=== PATIENT | female | born 1970 | race Caucasian/White ===

== ENCOUNTER 2018-08-03 14:36 | Emergency (ER) | payer MEDICAID ==
--- NOTE | 2018-08-03 15:46 | ER Document Report ---
ED Medical Screen (RME) - General TRAVEL OUTSIDE OF THE [place] IN LAST 30 DAYS: No <CHRISTINA FREITAS - Last Filed: 08/03/18 15:45> <BARB BUSH - Last Filed: 08/03/18 20:23> - General Chief Complaint: Diarrhea Stated Complaint: DIARRHEA Time Seen by Provider: 08/03/18 15:41 Notes: 47 years old female presents today with abdominal pain, and left lower quadrant region for the last 4-5 days with brown to black stools. No fever chills but nauseous. She has multiple medical problems. On examination left lower quadrant tenderness noted. (CHRISTINA FREITAS) - Related Data Allergies/Adverse Reactions: codeine Allergy (Verified 08/03/18 14:43) - Vital signs Vitals: Temp Pulse Resp BP Pulse Ox 97.8 F 75 16 94/58 L 100 08/03/18 15:12 08/03/18 15:12 08/03/18 15:12 08/03/18 15:12 08/03/18 15:12 Course - Laboratory Result Diagrams: 08/03/18 16:28 08/03/18 16:28 <BARB BUSH - Last Filed: 08/03/18 20:23> - Vital Signs Vital signs: Temp Pulse Resp BP Pulse Ox 97.8 F 75 16 94/58 L 100 08/03/18 15:12 08/03/18 15:12 08/03/18 15:12 08/03/18 15:12 08/03/18 15:12 - Laboratory Laboratory results interpreted by me: 08/03/18 16:28 RDW 14.1 H Seg Neutrophils % 37.9 L Lymphocytes % 45.7 H Doctor's Discharge <CHRISTINA FREITAS - Last Filed: 08/03/18 15:45> <BARB BUSH - Last Filed: 08/03/18 20:23> - Discharge Clinical Impression: Bloating Diarrhea Qualifiers: Diarrhea type: unspecified type Qualified Code(s): R19.7 - Diarrhea, unspecified Abdominal pain Qualifiers: Abdominal location: unspecified location Qualified Code(s): R10.9 - Unspecified abdominal pain Condition: Good Disposition: HOME, SELF-CARE Instructions: Abdominal Pain ([facility]), Diarrhea, Nonspecific ([facility]) Additional Instructions: He was seen today in the emergency department for your dark stools and diarrhea. He had an evaluation including a physical exam, he had blood tests done as well as an x-ray. There are no obvious abnormalities identified your blood work, you do not have any blood in your stool that is detectable today. I believe that your diarrhea will resolve on its own. Use the nausea medication prescribed to you as needed. Return for worsening or fevers or chills, if you begin to have blood in her stools. If he cannot eat or drink. Make sure you are staying hydrated drink plenty of fluids. Prescriptions: Ondansetron [Zofran Odt 4 mg Tablet] 1 - 2 tab PO Q4H PRN #15 tab.rapdis PRN Reason: For Nausea/Vomiting Referrals: LOCALMD,NO [NO LOCAL MD] - Follow up as needed
--- NOTE | 2018-08-03 16:27 | RADIOLOGY REPORT (SQ) ---
EXAM DESCRIPTION: ACUTE ABDOMEN SERIES COMPLETED DATE/TIME: 08/03/2018 4:09 pm REASON FOR STUDY: Abdominal painabdominal pain COMPARISON: None. NUMBER OF VIEWS: Three views. TECHNIQUE: Frontal chest, supine abdomen and upright/decubitus abdomen radiographic images acquired. LIMITATIONS: None. FINDINGS: CHEST: Lungs clear of infiltrates. FREE AIR: None. No abnormal gas collections. BOWEL GAS PATTERN: Nonobstructive pattern. No dilated loops or air fluid levels. CALCIFICATIONS: No suspicious calcifications. HARDWARE: None in the abdomen. SOFT TISSUES: No gross mass or suggestion of organomegaly. BONES: No acute fracture. No worrisome bone lesions. OTHER: No other significant finding. IMPRESSION: NO RADIOGRAPHIC EVIDENCE FOR ACUTE ABDOMINAL DISEASE. TECHNICAL DOCUMENTATION: JOB ID: [id number] [employer]- All Rights Reserved Reading location - IP/workstation name: [email or web address]
[2018-08-03 16:43] LABS: ABSOLUTE EOSINOPHILS # (AUTO) 0.2 10^3/uL (0.0-0.6); ABSOLUTE LYMPHOCYTES (AUTO) 2.8 10^3/uL (0.5-4.7); ABSOLUTE MONOCYTES (AUTO) 0.8 10^3/uL (0.1-1.4); ABSOLUTE NEUT (AUTO) 2.4 10^3/uL (1.7-8.2); BASOPHILS % (AUTO) 0.6 % (0-2); HEMATOCRIT 39.6 % (36.0-47.0); HEMOGLOBIN 13.5 g/dL (12.0-15.5); LYMPHOCYTES % (AUTO) 45.7 % (13-45); MEAN CORPUSCULAR HEMOGLOBIN 30.8 pg (27.0-33.4); MEAN CORPUSCULAR VOLUME 91 fl (80-97); MONOCYTES % (AUTO) 12.8 % (3-13); PLATELET COUNT 192 10^3/uL (150-450); RED BLOOD COUNT 4.38 10^6/uL (3.72-5.28); RED CELL DISTRIBUTION WIDTH 14.1 % (11.5-14.0); SEGMENTED NEUTROPHILS % (AUTO) 37.9 % (42-78); TOTAL CELLS COUNTED % (AUTO) 100 %; WHITE BLOOD COUNT 6.2 10^3/uL (4.0-10.5)
[2018-08-03 16:58] LABS: ALANINE AMINOTRANSFERASE 14 U/L (9-52); ALBUMIN 3.8 g/dL (3.5-5.0); ALKALINE PHOSPHATASE 65 U/L (38-126); ANION GAP 10 (5-19); ASPARTATE AMINO TRANSFERASE 16 U/L (14-36); BILIRUBIN,DIRECT 0.2 mg/dL (0.0-0.4); BILIRUBIN,TOTAL 0.2 mg/dL (0.2-1.3); BLOOD UREA NITROGEN 16 mg/dL (7-20); CALCIUM 9.2 mg/dL (8.4-10.2); CARBON DIOXIDE 28 mmol/L (22-30); CHLORIDE 104 mmol/L (98-107); GLUCOSE 92 mg/dL (75-110); POTASSIUM 4.4 mmol/L (3.6-5.0); SODIUM 141.7 mmol/L (137-145); TOTAL PROTEIN 6.5 g/dL (6.3-8.2)
[2018-08-03] MEDS ORDERED: RINGERS SOLUTION,LACTATED 1,000 ML IV ONE (18:23)
[2018-08-03] MEDS ORDERED: ONDANSETRON HCL INJ/PF 4 MG/2 ML SDV IV ONE (18:23)
[2018-08-03 20:49] VITALS: BP 91/50
== END 2018-08-03 20:49 | disposition home or self-care (01) ==
LOC: ER 14:36
DX: R19.7 Diarrhea, unspecified (principal); R14.0 Abdominal distension (gaseous); R10.32 Left lower quadrant pain; R10.814 Left lower quadrant abdominal tenderness; R11.0 Nausea
CPT/HCPCS: 99284; 96361; 96374; 36415; 83690; 85025; 82272; 80053; 74022; J2405; J7120